=== PATIENT | male | born 1995 | race Caucasian/White ===

== ENCOUNTER 2020-11-24 14:21 | Inpatient (IN) | payer BC, OTHER ==
[~2020-11-24] VITALS: Ht 193 cm; Wt 111.1 kg
--- NOTE | ~2020-11-24 | EEG ---
[facility] [place] [address] ELECTROENCEPHALOGRAM Name: IZABELLA DOS SANTOS Room #: 170-15 ADM IN M.R.#: [id number] Admission: 11/24/20 Attend Phys: Avery Arteaga MD Discharge: Date of : 89 Report #: [id number] THIS REPORT FOR: //name// DATE OF SERVICE: 11/24/2020 This patient is being evaluated for the possibility of seizure. EEG was done by placing the electrode by standard 10-20 system of electrode placement. Both referential and sequential montages were used for recording. Background activity in this patient's EEG is about 9 Hz and 30 microvolts. The patient became drowsy that is associated with bilateral slowing and vertex sharp waves. Throughout the record, no active epileptiform activity was noticed. IMPRESSION: This patient's EEG does not appear to be showing any active epileptiform activity. By: 20 23 Goran Maya MD /nt
--- NOTE | ~2020-11-24 | HC ---
[facility] [place] [address] CONSULTATION Name: IZABELLA DOS SANTOS Room #: 170-15 ADM IN M.R.#: [id number] Admission: 11/24/20 Attend Phys: Avery Arteaga MD Discharge: Date of : [birth year] Report #: [id number] THIS REPORT FOR: cc: FAM - No family physician/PCP FAM - No family physician/PCP Goran Maya MD ~ DATE OF SERVICE: 11/24/2020 HISTORY OF PRESENT ILLNESS: This is a 25-year-old male patient who was seen by me for a seizure. The patient apparently had a grand mal seizure. He does not remember much about that. The worrisome feature is that his memory is not completely back to the baseline. His brother had a seizure, but he said he never had any seizure before. He did bite his tongue. His provided some history. REVIEW OF SYSTEMS: Review of system indicates that this patient is complaining of headache now. He was COVID positive and he still is positive, but he does not have any CORE CHECKER manifestation of COVID as I understand. The patient did not give me this history and this history came only after talking to the nurses. This patient is afebrile here. His review of systems was otherwise mostly unremarkable. PAST MEDICAL HISTORY: Negative for seizure. FAMILY HISTORY: Brother did have seizures. SOCIAL HISTORY: He says he drinks few beers a week. PHYSICAL EXAMINATION: His examination indicate he is alert. He is responsive. He could not tell me what month or what date it is, but his speech looks intact. He does not have any meningeal sign. He moves all four extremities. His position sense is intact. He does not have any cerebellar sign. His cardiac examinations appear unremarkable. No respiratory difficulty I can tell. LABORATORY DATA: His white count is 6.2. The CT and cervical spine is unremarkable. IMPRESSION AND PLAN: This patient has a seizure, then he had a postictal period, which is pretty prolonged. He is still not back to the baseline. I am somewhat concerned about it. I was going to do the MRI in the morning, but he is still confused. So I am going to go ahead and do an MRI with and without contrast. I discussed with him potential side effect, which can occur with contrast. He understands that. It includes irreversible dermatological problems. His GFR is 73. I am also going to get an EEG done. We talked about spinal tap. If he does not become better, we may have to do it. I am going to [facility] [address] [place] [address] CONSULTATION Name: IZABELLA DOS SANTOS Room #: [facility] ADM IN .R.#: [id number] Admission: 11/24/20 Attend Phys: Avery Arteaga MD Discharge: Date of : 89 Report #: [id number] consult ID also to see what their feeling is about any post-viral syndrome, which can cause seizures and any other recommendation, especially their feeling about spinal tap. I gave him a dose of Keppra and I will keep him on Keppra for the time being. I did discuss with him that since he had a seizure, he cannot drive for 6 months and he needs to take other precautions. I talked to nurses in the ER. I talked to Emergency Room physician. More than 50 minutes time was spent taking care of this patient today and majority was spent counseling and coordinating. His B12 is low and that should be corrected, but that is an incidental finding unlikely to do with anything with the symptoms. By: 40 53 Goran Maya MD /nt
[2020-11-24 14:25] VITALS: BP 107/80
[2020-11-24 14:57] LABS: ABSOLUTE NEUTROPHILS 3.5 thou/uL (1.4-8.2); BASOPHILS 0.5 % (0.0-2.0); HEMATOCRIT 47.3 % (42.0-52.0); HEMOGLOBIN 16.2 gm/dL (14.0-18.0); LYMPHOCYTES 33.2 % (24.0-44.0); MCH 30.2 pg (26.0-34.0); MCHC 34.2 g/dL (28.0-37.0); MCV 88.5 fL (80.0-100.0); MONOCYTES 7.2 % (1.0-8.0); PLATELET COUNT 266 thou/uL (150-400); POLYS 57.1 % (36.0-66.0); RBC 5.35 mil/uL (4.50-6.00); RDW 13.3 % (10.5-14.5); WBC 6.2 thou/uL (4.0-11.0)
[2020-11-24 15:10] LABS: ANION GAP 12 mmol/L (7-16); BUN 18 mg/dL (7-18); CALCIUM 9.6 mg/dL (8.5-10.1); CHLORIDE 100 mmol/L (98-107); CO2 25 mmol/L (21-32); CREATININE 1.2 mg/dL (0.7-1.3); GLUCOSE 150 mg/dL (74-106); POTASSIUM 4.2 mmol/L (3.5-5.1); SODIUM 137 mmol/L (136-145)
[2020-11-24 15:16] LABS: INR 1.1; PROTIME 11.3 Seconds (9.3-11.4)
[2020-11-24 15:17] LABS: D-DIMER < 0.19 ug/mLFEU (0.19-0.50)
[2020-11-24 15:20] LABS: ALBUMIN 4.5 g/dL (3.4-5.0); DIRECT BILIRUBIN 0.1 mg/dL (<0.1-0.2); SGOT 21 U/L (15-37); SGPT 37 U/L (16-63); TOTAL BILIRUBIN 0.8 mg/dL (0.2-1.0); TOTAL PROTEIN 7.5 g/dL (6.4-8.2); TROPONIN-I <0.06 ng/mL (<0.06)
[2020-11-24 16:12] LABS: AMP/METHAMP Negative (Negative); BARBITURATES Negative (Negative); BENZODIAZEPINES Negative (Negative); COCAINE Negative (Negative); METHADONE Negative (Negative); OPIATES Negative (Negative); PCP Negative (Negative)
--- NOTE | 2020-11-24 20:54 | NUR ---
PT'S MOTHER (ESME ELAINE) [phone]
[2020-11-24 20:55] VITALS: BP 149/100
[2020-11-24 23:21] VITALS: BP 133/90
[2020-11-25 00:27] VITALS: BP 127/59
[2020-11-25 06:27] VITALS: BP 110/67
--- NOTE | 2020-11-25 07:18 | EKG ---
[address] [address] ELECTROCARDIOGRAM REPORT Name: IZABELLA DOS SANTOS Room #: 208-P ADM IN M.R.#: [id number] Admission: 11/24/20 Attend Phys: Avery Arteaga MD Discharge: Date of : 89 Report #: [id number] [facility] ED Test Date: 2020-11-24 Test Time: 14:57:13 Pat Name: IZABELLA DOS SANTOS Department: Room: 208 Gender: M Janitor And Cleaner: CHELLE : 1995 Requested By: Liz Gutiérrez Order Number: [id number] : Phill Haley Measurements Intervals [place] Rate: 101 P: 27 DC: 179 QRS: 40 QRSD: 99 T: -82 QT: 302 QTc: 392 Interpretive Statements Sinus tachycardia Probable left atrial enlargement Borderline repolarization abnormality No previous ECG available for comparison Electronically Signed On 11-25-2020 7:18:07 SOFTWARE CONFIGURATION SPECIALIST by Phill Haley [email or web address] <ELECTRONICALLY SIGNED> By: Phill Haley MD, [facility] 11/25/20 0718 1457 1457 Phill Haley MD, FACC /EPI
[2020-11-25 08:20] VITALS: BP 140/83
[2020-11-25 11:40] VITALS: BP 121/70
[2020-11-25] MEDS ORDERED: KEPPRA 500 MG500 M1 PO (14:09)
[2020-11-25 14:48] VITALS: BP 121/70
--- NOTE | 2020-11-25 16:44 | NUR ---
ASSESSMENT CHARTED - MEDS PER BONY - KINZA DIET AND FLUIDS. NO CO'S OF PAIN OR NAUSEA. SEIZURE PRECAUTIONS INSITU - NO SEIZURE ACTIVITY NOTED. SEEN BY NEURO AND INFECTIOUS DISEASE. HOME THIS AFTERNOON. INSTRUCTION RE HOME MEDS/ CARE AND FOLLOW UP GIVEN TO PATIENT AND SPOUSE. STATED UNDERSTANDING OF INSTRUCTION GIVEN. IV D/C'S. PT LEFT UNIT AMBULATORY - ACCOMAPANIED BY STAFF. HOME VIA PVT VEHICLE - ACCOMPANIED BY - NO CO'S AT TIME OF D/C.
--- NOTE | 2020-11-26 08:31 | HC ---
[facility] [place] [address] CONSULTATION Name: IZABELLA DOS SANTOS Room #: 208-P [facility] IN M.R.#: [id number] Admission: 11/24/20 Attend Phys: Avery Arteaga MD Discharge: 11/25/20 Date of : [birth year] Report #: [id number] THIS REPORT FOR: cc: FAM - No family physician/PCP FAM - No family physician/PCP Irwin Carrasquillo MD ~ DATE OF SERVICE: 11/25/2020 INFECTIOUS DISEASE CONSULTATION ATTENDING PHYSICIAN: Avery Arteaga MD REASON FOR EVALUATION: New onset seizures. HISTORY OF SUBJECTIVE: Chart reviewed, patient examined. This is a 25-year-old gentleman without significant medical history, presented to the Emergency Room postictal state. Apparently, he was out working in the yard, had a witnessed seizure with tonic-clonic jerking. He has no recollection of the events in the present or even earlier than in the day. He has a vague recollection of going to the store. He denied intense physical activity. He denies any preceding fevers or chills. No headaches. No stiff neck. On questioning, he denies any particular exposure history. He does have animals including 2 cats and a dog. He has had no recent travel. He is not aware of any environmental exposures. On evaluation, laboratory was generally unremarkable. Glucose was slightly elevated at 150. CT of the head showed no evidence of hemorrhage or mass. Chest x-ray was otherwise unrevealing. He did have coronavirus testing, which was positive. TSH was in the normal range. MRI with and without contrast was otherwise unremarkable. PAST MEDICAL HISTORY: Otherwise, unrevealing. He does have history of depression. SOCIAL HISTORY: Former smoker, occasional use of marijuana, fairly regular alcohol, although not significant amounts. FAMILY HISTORY: Noncontributory. REVIEW OF SYSTEMS: Otherwise, unremarkable. Denies any GI or pulmonary-related complaints. PHYSICAL EXAMINATION: GENERAL: He is alert, cooperative, appropriate. He is not overtly distressed. VITAL SIGNS: Temperature 98.3, pulse 68, respirations 18, blood pressure 121/70. SKIN: Warm, dry, no rashes. [facility] [address] [place] [address] CONSULTATION Name: IZABELLA DOS SANTOS Room #: 208-P [facility] IN [facility].#: [id number] Admission: 11/24/20 Attend Phys: Avery Arteaga MD Discharge: 11/25/20 Date of : 89 Report #: [id number] HEENT: Otherwise unremarkable. Normocephalic. Extraocular muscles intact. NECK: Supple. LUNGS: Clear to auscultation bilaterally. HEART: Regular rate and rhythm without murmur. ABDOMEN: Soft, nontender, nondistended. BACK: There is no palpable spinal tenderness or paraspinal tenderness. GENITOURINARY AND RECTAL: Deferred. LABORATORY DATA: CRP of less than 2.0. MRI as described above. B12 of 174. TSH 1.519. Drug screen was otherwise negative. Electrolytes: Sodium 137, potassium 4.2, chloride 100, bicarbonate 25, anion gap of 12, BUN and creatinine 18 and 1.2. PT of 11.3 INR of 1.1. D-dimer less than 0.19. ASSESSMENT AND PLAN: New onset seizures, unclear etiology. Based on the available evidence, I see no signs or symptoms that would suggest underlying infectious etiology. I think ____ is warranted at this point, he is completely asymptomatic. We will be able to see him in followup. Did discuss with Dr. Arteaga. Pursue additional studies as needed. <ELECTRONICALLY SIGNED> By: Irwin Carrasquillo MD 11/26/20 0831 1403 1427 Irwin Carrasquillo MD /nt
== END 2020-11-25 15:41 | disposition home or self-care (01) | DRG 100 ==
LOC: ER 14:21 → EROBS 19:40 → 2N 23:07
PROVIDERS: Emergency Medicine; ADMIT Hospitalist; ATTEND Hospitalist
DX: R56.9 Unspecified convulsions (principal); U07.1 COVID-19; Z87.891 Personal history of nicotine dependence; Z79.899 Other long term (current) drug therapy
CPT/HCPCS: 10194